=== PATIENT | male | born 1955 | race Caucasian/White ===

== ENCOUNTER 2018-09-14 13:45 | Outpatient (CLI) | payer OTHER ==
--- NOTE | 2018-09-14 14:12 | RAD ---
2 views of the left hip: 09/14/2018 COMPARISON: None HISTORY: Hip pain FINDINGS: Mild superior joint space narrowing. Mild lateral acetabular osteophyte formation. No acute fracture or evidence of dislocation. Incompletely imaged lower lumbar spine degenerative change seen. IMPRESSION: Mild degenerative joint disease.
--- NOTE | 2018-09-14 14:13 | RAD ---
2 views of left shoulder 09/14/2018 COMPARISON: None HISTORY: Shoulder pain FINDINGS: There is mild prominence of the left hilar shadow, only partially imaged on this exam. Darrel mmend further assessment view chest radiograph. There is narrowing of the acromioclavicular joint with superior and inferior distal left clavicular o steophyte formation. No widening of the coracoclavicular interspace. No acute fracture noted. Glenohumeral relationship is not well seen as no scapular Y-view or axillary view is provided. IMPRESSION: Degenerative changes of the left acromioclavicular joint with no acute fracture. Mild prominence of left hilar shadow, only partially imaged. Dedicated chest radiograph advised.
--- NOTE | 2018-09-14 14:14 | RAD ---
Lumbar spine 2 views 09/14/2018 COMPARISON: None HISTORY: Pain FINDINGS: There is atherosclerotic calcification of the abdominal aorta. Multilevel lateral osteophyte formation noted, most prominent on the left at L1-2, L2-3, and L3-4. There is multilevel disc space narrowing and anterior osteophyte formation within the lumbar spine, m ost prominent at L2-3, L3-4, and L4-5. Mild retrolisthesis of L4 on L5 noted measuring 3 mm. There is multilevel lower lumbar spine facet hy pertrophy. No acute osseous abnormality. IMPRESSION: Multilevel degenerative change of the lumbar spine.
== END 2018-09-14 13:46 | disposition home or self-care (01) ==
LOC: NAV RAD 13:45
PROVIDERS: ATTEND Family Medicine
DX: Z02.71 Encounter for disability determination (principal); M25.512 Pain in left shoulder; M54.5 Low back pain; M15.9 Polyosteoarthritis, unspecified; M47.816 Spondylosis without myelopathy or radiculopathy, lumbar region
CPT/HCPCS: 72100